=== PATIENT | male | born 1960 | race African-American/Black ===

== ENCOUNTER 2018-01-16 19:03 | Emergency (ER) | payer MEDICAID ==
[~2018-01-16] VITALS: Ht 175.3 cm; Wt 120.2 kg
[2018-01-16 19:12] VITALS: BP 134/80
--- NOTE | 2018-01-16 19:15 | NUR ---
PT AMBULATORY TO ER LOBBY W/ STEADY GAIT IN STABLE CONDITION.
--- NOTE | 2018-01-16 20:19 | NUR ---
PT TAKEN TO BED 1
--- NOTE | 2018-01-16 20:20 | NUR ---
C/O CONGESTION WITH PRODUCTIVE X 2 DAYS W/ PMH CHRONIC BRONCHITIS. NO RESPIRATORY DISTRESS NOTED...PT SPEAKS IN FULL SENTENCES. REQUEST TO BE TESTED FOR STD; DENIES PAINFUL URINATION OR FREQUENCY.
--- NOTE | 2018-01-16 21:21 | NUR ---
Dr. Oconnell evaluating patient at bedside.
[2018-01-16] MEDS ORDERED: ALBUTEROL SULFATE/IPRATROPIU 3 ML SOL IH ONE (21:35)
[2018-01-16] MEDS ORDERED: cefTRIAXone 250 MG in LIDOCAINE MPF 1% - 5 mL VIAL 0.9 ML IM ONE (21:35)
[2018-01-16] MEDS ORDERED: AZITHROMYCIN 250 MG TAB PO ONE (21:35)
--- NOTE | 2018-01-16 21:50 | NUR ---
Respiratory Therapist at bedside for respiratory intervention. Patient tolerated TX WELL.
[2018-01-16 21:51] LABS: APPEARANCE,URINE CLEAR (CLEAR); BILIRUBIN,URINE NEGATIVE (NEGATIVE); BLOOD, URINE NEGATIVE (NEGATIVE); COLOR,URINE YELLOW (YELLOW); LEUKOCYTE ESTERASE ,URINE NEGATIVE (NEGATIVE); NITRITE, URINE NEGATIVE (NEGATIVE); UGLUCOSE NEGATIVE (NEGATIVE)
[2018-01-16 22:00] VITALS: BP 144/88
--- NOTE | 2018-01-16 22:00 | NUR ---
Patient discharged with v/s stable. Written and verbal after care instructions given and explained. Patient verbalized understanding. Ambulatory with steady gait. All questions addressed prior to discharge. Advised to follow up with PMD.
== END 2018-01-16 22:00 | disposition home or self-care (01) ==
LOC: MED 19:03
DX: J31.0 Chronic rhinitis (principal); N50.89 Other specified disorders of the male genital organs; R61 Generalized hyperhidrosis; F17.210 Nicotine dependence, cigarettes, uncomplicated
CPT/HCPCS: 36415; 71045; 81003; 96372; 99285; J0696; J2001; J7620; Q0092; 94640

== ENCOUNTER 2020-09-10 08:30 | Emergency (ER) | payer MEDICAID ==
[~2020-09-10] VITALS: Ht 175.3 cm; Wt 110.2 kg
--- NOTE | 2020-09-10 08:30 | NUR ---
Patient BIB [facility] for pre-booking medical screening exam, transferred to chair Love RN evaluating the patient.
[2020-09-10 08:32] VITALS: BP 106/67
--- NOTE | 2020-09-10 08:34 | NUR ---
PATIENT BIB [employer] FOR MEDICAL CLEARANCE. PT REPORTS HAVING HX OF ASTHMA AND NEEDS CLEARANCE FOR BOOKING. PT DENIES ANY SOB. NO SIGNS OF RESPIRATORY DISTRESS. O2 SAT 98% ROOM AIR. DENIES PAIN.
--- NOTE | 2020-09-10 08:50 | NUR ---
Dr. Mancera is evaluating the patient.
[2020-09-10 09:07] VITALS: BP 106/67
--- NOTE | 2020-09-10 09:07 | NUR ---
PATIENT BIB [employer]. PATIENT EXAMINED BY DR. NUR. PATIENT MEDICALLY CLEARED AND RELEASED IN CUSTODY IN STABLE CONDITION. ORIGINAL PRE-BOOK FORM GIVEN TO OFFICER Cory GARCIA #[id number].
== END 2020-09-10 09:07 ==
LOC: MED 08:30
DX: J45.909 Unspecified asthma, uncomplicated (principal); Z02.89 Encounter for other administrative examinations
CPT/HCPCS: 99283